=== PATIENT | female | born 1980 | race Caucasian/White ===

== ENCOUNTER 2018-08-21 12:25 | Emergency (ER) | payer BC, OTHER ==
[2018-08-21 13:16] VITALS: BP 145/89
--- NOTE | 2018-08-21 13:17 | UC ---
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 NO FEVER/CHILLS. TAKING SUDAFED PRN- LAST DOSE YESTERDAY 2199. " -she has had sinus infections befoe like this and required abx. pain/pressure over cheeks x 1 wk. has not used netti pot but has heard of them. no flonase used. -gets asthma sometimes when she is sick but none at this time. 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 - Family History Known Family History: Positive: Hypertension - Social History Alcohol Use: None Substance Use Type: None Smoking Status (MU): Never Smoked Tobacco Review of Systems All Other Systems Reviewed And Are Negative: Yes Constitutional: Positive: Negative Skin: Positive: Negative Eyes: Positive: Negative ENT: Positive: Sinus Congestion, Sinus Pain/Tenderness Respiratory: Positive: Negative Gastrointestinal: Positive: Negative Genitourinary: Positive: Negative Motor: Positive: Negative Neurovascular: Positive: Negative Musculoskeletal: Positive: Negative Neurological: Positive: Negative Psychological: Positive: Negative Is Patient Immunocompromised?: No Physical Exam Triage Information Reviewed: Yes Appearance: Well-Appearing, No Pain Distress, Well-Nourished - very pleasant Vital Signs: Initial Vital Signs Temp 97.9 F 08/21/18 13:12 Pulse 76 08/21/18 13:12 Resp 16 08/21/18 13:12 BP 145/89 08/21/18 13:12 Pulse Ox 100 08/21/18 13:12 Eye Exam: Normal ENT Exam: Normal ENT: Positive: Pharyngeal erythema - mild w/ PND, TMs normal, Sinus tenderness - b/l max tenderness. Negative: TM bulging, TM dull, TM red, Tonsillar swelling , Tonsillar exudate Dental Exam: Normal Neck exam: Normal Neck: Positive: Supple, Nontender, No Lymphadenopathy Respiratory Exam: Normal Respiratory: Positive: Lungs clear, Normal breath sounds, No respiratory distress, No accessory muscle use. Negative: Crackles, Rhonchi, Stridor, Wheezing Cardiovascular Exam: Normal Cardiovascular: Positive: RRR Abdominal Exam: Normal Musculoskeletal Exam: Normal Neurological Exam: Normal Psychological Exam: Normal Skin Exam: Normal Throat Pain/Nasal Course/Dx - Course Course Of Treatment: amox 875mgs bid x 10 d -probiotic - Differential Dx/Diagnosis Differential Diagnosis/HQI/PQRI: Pharyngitis, Sinusitis, Tonsillitis, URI Provider Diagnosis: Sinusitis Discharge - Sign-Out/Discharge Documenting (check all that apply): Patient Departure All imaging exams completed and their final reports reviewed: No Studies - Discharge Plan Condition: Stable Disposition: HOME Prescriptions: Amoxicillin PO (*) [Amoxicillin 875 MG (*)] 875 mg PO BID #20 tab Patient Education Materials: Sinusitis (ED) Referrals: No Primary Care Phys,NOPCP [Primary Care Provider] - Additional Instructions: -Make sure to take a probiotic daily while on antibiotics to help prevent a potential complication of antibiotic use called c diff. Some well known brands that can be found OTC are florastor, [employer] and Onit. Make sure to complete the entire prescription unless advised otherwise by your health care provider. -Antibiotics can decrease the efficacy of control pills, make sure to use back up control for the rest of your cycle. -You should use a netti pot with distilled water followed by flonase nasal spray. - Billing Disposition and Condition Condition: STABLE Disposition: Home
== END 2018-08-21 13:44 | disposition home or self-care (01) ==
LOC: UCCORT 12:25
DX: J32.9 Chronic sinusitis, unspecified (principal)
CPT/HCPCS: 99202; G0463

== ENCOUNTER 2018-10-23 17:24 | Emergency (ER) | payer BC, OTHER ==
--- NOTE | 2018-10-23 17:50 | UC ---
Throat Pain/Nasal [place] HPI - HPI Summary HPI Summary: 38 yo female presents with sinus pain/pressure/congestion for the last 3-4 days. She tells me that over the last 2-3 months she has been having trouble with sinus congestion and "infections". She has been on amoxicillin and erythromycin for these. Has been taking sudafed for her discomfort with little relief. Denies fever, chills, sore throat, cough, rash - History of Current Complaint Stated Complaint: SINUSES Time Seen by Provider: 10/23/18 17:49 Hx Obtained From: Patient Hx Last Menstrual Period: 08/16/18 Onset/Duration: Gradual Onset Severity: Moderate Pain Intensity: 5 Pain Scale Used: 0-10 Numeric - Allergies/Home Medications Allergies/Adverse Reactions: Allergies Allergy/AdvReac Type Severity Reaction Status Date / Time No Known Allergies Allergy Verified 10/23/18 17:59 PMH/Surg Hx/FS Hx/Imm Hx - Additional Past Medical History Additional PMH: None - Surgical History Surgical History: Yes Surgery Procedure, Year, and Place: 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 - Family History Known Family History: Positive: Hypertension - Social History Lives: With Family Alcohol Use: None Substance Use Type: None Smoking Status (MU): Never Smoked Tobacco Review of Systems All Other Systems Reviewed And Are Negative: Yes Constitutional: Positive: Negative Skin: Positive: Negative Eyes: Positive: Negative ENT: Positive: Nasal Discharge, Sinus Congestion, Sinus Pain/Tenderness Respiratory: Positive: Negative Cardiovascular: Positive: Negative Gastrointestinal: Positive: Negative Neurovascular: Positive: Negative Neurological: Positive: Negative Psychological: Positive: Negative Physical Exam - Summary Physical Exam Summary: GENERAL: NAD. WDWN. No pain distress. SKIN: No rashes, sores, lesions, or open wounds. HEENT: Head: AT/NC Eyes: EOM intact. Conjunctiva clear without inflammation or discharge. Ears: Hearing grossly normal. TMs intact, no bulging, erythema, or edema. Nose: Nasal mucosa mildly swollen and erythematous without discharge. TTP maxillary sinus. Positive post nasal drip Throat: Posterior oropharynx without exudates, erythema, or tonsillar enlargement. Uvula midline. NECK: Supple. Nontender. No lymphadenopathy. CHEST: CTAB. No r/r/w. No accessory muscle use. Breathing comfortably and in no distress. CV: RRR. Without m/r/g. Pulses intact. NEURO: Alert. PSYCH: Age appropriate behavior. Triage Information Reviewed: Yes Vital Signs: Vital Signs: Temp Pulse Resp BP Pulse Ox 98 F 81 15 130/84 99 10/23/18 17:56 10/23/18 17:56 10/23/18 17:56 10/23/18 17:56 10/23/18 17:56 Vital Signs Reviewed: Yes Throat Pain/Nasal Course/Dx - Course Course Of Treatment: Sinusitis. Discussed referral to ENT given her sinus issues over the last few months - pt elected to hold off at this time. Strongly encouraged that if she has no relief with anbx or continues to have reoccurring sinus issues - a referral would be beneficial. - Differential Dx/Diagnosis Provider Diagnosis: Sinusitis Discharge - Sign-Out/Discharge Documenting (check all that apply): Patient Departure All imaging exams completed and their final reports reviewed: No Studies - Discharge Plan Condition: Stable Disposition: HOME Prescriptions: DOXYcycline CAP(*) [DOXYcycline 100MG CAP(*)] 100 mg PO BID #20 cap Fluticasone NASAL SPRAY 50MCG* [Flonase NASAL SPRAY 50MCG*] 2 spray BOTH NARES DAILY #1 btl Loratadine [Claritin] 10 mg PO DAILY #30 tablet Patient Education Materials: Sinusitis (ED) Referrals: Slime Neff MD [Primary Care Provider] - Additional Instructions: If you develop a fever, shortness of breath, chest pain, new or worsening symptoms - please call your PCP or go to the ED immediately. - Billing Disposition and Condition Condition: STABLE Disposition: Home
[2018-10-23 17:59] VITALS: BP 130/84
[2018-10-23] MEDS ORDERED: DOXYcycline CAP(*) 100 MG PO ONE (18:00)
== END 2018-10-23 18:09 | disposition home or self-care (01) ==
LOC: UCCORT 17:24
DX: J32.9 Chronic sinusitis, unspecified (principal)
CPT/HCPCS: 99212; A9270-GY; G0463

== ENCOUNTER 2019-04-24 08:47 | Emergency (ER) | payer BC, OTHER ==
[2019-04-24 09:02] VITALS: BP 117/74
--- NOTE | 2019-04-24 09:19 | UC ---
Eye Complaint HPI - HPI Summary HPI Summary: Pt presents with c/o sudden onset of bilateral eye redness and drainage. Pt woke this morning at ~ 0400 with eye drainage and nasal congestion and sinus pressure. Pt reports that her 2 year old twin boys are both currently being treated for "pink eye" - History of Current Complaint Chief Complaint: UCEye Stated Complaint: CONGESTION, EYE IRRITATION Time Seen by Provider: 04/24/19 08:55 Hx Obtained From: Patient Hx Last Menstrual Period: ~04/10/2019 ?: No Onset/Duration: Sudden Onset, Lasting Hours, Still Present Timing: Constant Severity Initially: Mild Severity Currently: Mild Pain Intensity: 0 Character: Foreign Body Sensation Aggravating Factor(s): Nothing Alleviating Factor(s): Eye Drops - used child's polytrim drops Associated Signs And Symptoms: Positive: Drainage (Clear) - Risk Factors Penetrating Injury Risk Factor: Negative Globe Rupture Risk Factors: Negative Acute Glaucoma Risk Factors: Negative Optic Artery Occlusion Risk Factors: Negative - Allergies/Home Medications Allergies/Adverse Reactions: Allergies Allergy/AdvReac Type Severity Reaction Status Date / Time No Known Allergies Allergy Verified 04/24/19 08:58 PMH/Surg Hx/FS Hx/Imm Hx Previously Healthy: Yes - Surgical History Surgical History: Yes Surgery Procedure, Year, and Place: Right Foot Benign Tumor, 1999 - Family History Known Family History: Positive: Hypertension - Social History Occupation: Employed Full-time Lives: With Family Alcohol Use: Rare Substance Use Type: None Smoking Status (MU): Never Smoked Tobacco Have You Smoked in the Last Year: No - Immunization History Vaccination Up to Date: Yes Review of Systems All Other Systems Reviewed And Are Negative: Yes Constitutional: Positive: Negative Skin: Positive: Negative Eyes: Positive: Drainage, Eye Redness ENT: Positive: Nasal Discharge, Sinus Congestion Respiratory: Positive: Negative Cardiovascular: Positive: Negative Gastrointestinal: Positive: Negative Genitourinary: Positive: Negative Motor: Positive: Negative Neurovascular: Positive: Negative Musculoskeletal: Positive: Negative Neurological: Positive: Negative Psychological: Positive: Negative Is Patient Immunocompromised?: No Physical Exam Triage Information Reviewed: Yes Appearance: Well-Appearing Vital Signs: Initial Vital Signs Temp 98.3 F 04/24/19 08:57 Pulse 90 04/24/19 08:57 Resp 16 04/24/19 08:57 BP 117/74 04/24/19 08:57 Pulse Ox 100 04/24/19 08:57 Vital Signs Reviewed: Yes Eyes: Positive: Conjunctiva Inflamed, Discharge ENT: Positive: Nasal congestion Dental Exam: Normal Neck exam: Normal Respiratory Exam: Normal Cardiovascular Exam: Normal Musculoskeletal Exam: Normal Neurological Exam: Normal Psychological Exam: Normal Skin Exam: Normal Eye Complaint Course/Dx - Differential Dx/Diagnosis Differential Diagnosis/HQI/PQRI: Conjunctivitis Provider Diagnosis: Conjunctivitis, Viral syndrome Discharge ED - Sign-Out/Discharge Documenting (check all that apply): Patient Departure All imaging exams completed and their final reports reviewed: No Studies - Discharge Plan Condition: Stable Disposition: HOME Prescriptions: Guaifenesin/Pseudoephedrne HCl [Mucinex D ER 600-60 mg Tablet] 1 each PO Q12H # 14 tab.er.12h Ofloxacin 0.3% (Eye Drop) [Ocuflox OPTH 0.3% (Eye Drop)] 1 - 2 drop BOTH EYES Q4H 7 Days #1 btl Patient Education Materials: Viral Syndrome (ED), Conjunctivitis (ED) Referrals: Slime Neff MD [Primary Care Provider] - If Needed - Billing Disposition and Condition Condition: STABLE Disposition: Home - Attestation Statements Provider Attestation: This patient was not seen by me. I was available for consult. Chart reviewed. ARACELI
== END 2019-04-24 09:29 | disposition home or self-care (01) ==
LOC: UCCORT 08:47
DX: B34.9 Viral infection, unspecified (principal); H10.9 Unspecified conjunctivitis; R09.81 Nasal congestion
CPT/HCPCS: 99212; G0463